=== PATIENT | female | born 1985 | race Caucasian/White ===

== ENCOUNTER 2016-04-22 15:24 | Emergency (ER) | payer OTHER ==
[~2016-04-22] VITALS: Ht 160 cm; Wt 82.0 kg
[~2016-04-22 15:24] MED LIST: FERR27TA; PREN-39; PREN1TAB49 PO
[2016-04-22 16:26] VITALS: Ht 160 cm; Wt 82.0 kg
--- NOTE | 2016-04-22 18:56 | ERD ---
ER Documentation Chief Complaint Date/Time DATE: 04/22/16 TIME: 18:54 Chief Complaint HAS AP IS ABOUT 10 WEEKS JUST FOUND OUT HPI The patient is a 31-year-old female that was sent here by her doctor's office for an ultrasound. She states that she was diagnosed with today and also has an IUD. She reports some 5/10 suprapubic pain which she describes as similar cramping to her menstrual periods, but more intense. She denies dysuria , flank pain, fever, chills, nausea, vomiting, vaginal bleeding, vaginal spotting, or any other symptoms. ROS All systems reviewed and are negative except as per history of present illness. Medications Home Meds Reported Medications Vits W-Ca,Fe,Fa(<1MG) () 1 Tab Tablet, 1 TAB PO DAILY 03/15/12 Ferrous Sulfate (Iron) 1 Tab Tablet 03/15/10 Vits W-Ca,Fe,Fa(<1MG) ( Vitamins) 1 Tab Tablet 03/15/10 Allergies Allergies: Coded Allergies: No Known Allergy (Verified Allergy, Unknown, 10/29/06) PMhx/Soc Medical and Surgical Hx: pt denies Medical Hx, pt denies Surgical Hx Hx Alcohol Use: No Hx Substance Use: No Hx Tobacco Use: No Physical Exam Vitals Vital Signs Date Time Temp Pulse Resp B/P Pulse Ox O2 Delivery O2 Flow Rate FiO2 04/22/16 21:13 98.0 70 18 118/70 100 04/22/16 16:26 99.1 66 18 116/61 100 Physical Exam Const: No acute distress, nontoxic appearing Head: Atraumatic Eyes: Normal Conjunctiva ENT: Normal External Ears, Nose and Mouth. Neck: Full range of motion..~ No meningismus. Resp: Clear to auscultation bilaterally Cardio: Regular rate and rhythm, no murmurs Abd: Soft, non tender, non distended. Normal bowel sounds in all quadrants. No guarding, no rebound. Skin: No petechiae or rashes Back: No midline or flank tenderness. No CVA tenderness. Ext: No cyanosis, or edema Neur: Awake and alert Psych: Normal Mood and Affect Results 24 hrs Laboratory Tests Test 04/22/16 19:06 04/22/16 19:09 Bedside Urine Blood Negative Bedside Urine Glucose (UA) Negative Bedside Urine Ketones (LAB) Negative Bedside Urine Leukocyte Esterase (L Negative Bedside Urine Nitrite (LAB) Negative Bedside Urine Protein (LAB) Negative Bedside Urine pH (LAB) 7.0 Beta HCG, Quantitative 27100.0mIU/ml PROCEDURE: US OB. CLINICAL INDICATION: Pelvic pain and cramping. Last menstrual period on . TECHNIQUE: Transabdominal imaging of the uterus was performed. COMPARISON: None. FINDINGS: A single intrauterine is present with identification of a gestational sac, pole, and yolk sac. [place] rump length measures 2.64 cm, corresponding to a gestational age of 9 weeks 5 days. Real time examination shows cardiac activity. The heart rate is 164 beats per minute. A small subchorionic hemorrhage is visualized measuring about 1.2 cm in diameter. The right ovary was not well visualized. The left ovary measures 3.2 x 2 0. x 1.9 cm and is unremarkable in appearance. No adnexal masses are visualized. There is no significant free fluid in the pelvis. RPTAT: EE IMPRESSION: 1. Single viable intrauterine gestation of approximately 9 weeks 5 days. The estimated date of delivery is 11/20/2016 on the basis of this examination. .Any Bueno MD, MD Date Time Electronically viewed and signed by .Any Bueno MD, MD on 04/22/2016 19:37 Procedures/MDM Nursing Notes Reviewed Previous Medical Records requested via [facility]. EMERGENCY DEPARTMENT COURSE / MEDICAL DECISION MAKING: The patient comes to the ED secondary to new diagnosis of with IUD placement. Differential diagnosis upon initial evaluation includes but is not limited to: Ectopic , normal , and others. Pelvic OB ultrasound per radiology report: IMPRESSION: 1. Single viable intrauterine gestation of approximately 9 weeks 5 days. The estimated date of delivery is 11/20/2016 on the basis of this examination. Beta-hC Urine dip: negative for infection or hematuria Final impression: Intrauterine The case was discussed with supervising physician Dr. Lynch. Called the laborist technology solutions architect, Dr. Colorado, and spoke with him at 1850. Per Dr. Colorado, ordered beta hCG and ultrasound. Per Dr. Colorado, if the beta hCG and ultrasound are within normal limits and do not suggest ectopic or other emergency, the patient can be discharged with outpatient follow-up with her DESIGN VERIFICATION ENGINEER tomorrow. As the ultrasound did not show an IUD, called and spoke with radiology. No IUD was visualized. Discussed this with supervising physician, Dr. Akers. Per Dr. Akers, the patient is an appropriate candidate for outpatient management and follow-up at this time. No further laboratory or imaging studies or interventions indicated at this time. Based on patient's history of present illness and physical examination the decision was made to discharge. There is no evidence of life threatening injuries or illnesses at this time. On re-examination, patient resting in no distress, stable vital signs, reports feeling safe for discharge with outpatient follow up with her DESIGN VERIFICATION ENGINEER tomorrow. She was given a copy of her ultrasound report and her lab results. Patient given return precautions. She verbalized understanding and agreed to return precautions. All of her questions and concerns were addressed prior to discharge. She agrees with the plan of care. KUMAR ORLANDO NP Apr 22, 2016 18:56
[2016-04-22 19:07] LABS: URINE BLOOD (Dip) POC Negative (NEGATIVE)
--- NOTE | 2016-04-22 19:29 | CONS ---
DATE OF ADMISSION: 04/22/2016 DATE OF CONSULTATION: Thank you for consulting with us over the phone. This is a 31-year-old sent from her doctor's offic e for an ultrasound as she was reported to have an IUD. The patient reported some cramps but no vag inal bleeding, no urinary symptoms. As the patient is with IUD, the risk of ectopic pregna ncy increased, so please have a pelvic ultrasound to rule out ectopic and confirm the intr auterine . Second, please do a beta-hCG. If there is any suspicion of ectopic , no IUP, or any new symptoms, please call the laborist ____ [phone] immediately or consult her provider, Dr. Santos, on his cell phone. Thank you very much for consulting with us. Dictated By: BEAU ARECHIGA/SAGRARIO Conf#: [id number] DID#: [id number]
--- NOTE | 2016-04-22 19:33 | RADRPT ---
PROCEDURE: US OB. CLINICAL INDICATION: Pelvic pain and cramping. Last menstrual period on 02/06/2016. TECHNIQUE: Transabdominal imaging of the uterus was performed. COMPARISON: None. FINDINGS: A single intrauterine is present with identification of a gestational sac, pole, and yolk sac. [place] rump length measures 2.64 cm, corresponding to a gestational age of 9 weeks 5 days. Real time examination shows cardiac activity. The heart rate is 164 beats per minute. A small subchorionic hemorrhage is visualized measuring about 1.2 cm in diameter. The right ovary was not well visualized. The left ovary measures 3.2 x 2 0. x 1.9 cm and is unremar kable in appearance. No adnexal masses are visualized. There is no significant free fluid in the p hector. RPTAT: EE IMPRESSION: 1. Single viable intrauterine gestation of approximately 9 weeks 5 days. The estimated date of del rebeca is 11/20/2016 on the basis of this examination. .Any Bueno MD, MD Date Time Electronically viewed and signed by .Any Bueno MD, on 04/22/2016 19:37 .T/
[2016-04-22 21:13] VITALS: BP 118/70; PULSE 70; RESP 18; TEMP 98
== END 2016-04-22 21:13 | disposition home or self-care (01) ==
LOC: FTE 15:24
DX: O26.891 Other specified pregnancy related conditions, first trimester (principal); R10.30 Lower abdominal pain, unspecified; R10.2 Pelvic and perineal pain; Z3A.09 9 weeks gestation of pregnancy
CPT/HCPCS: 36415; 76801; 81003; 84702; Z7502

== ENCOUNTER 2016-11-10 05:00 | Inpatient (IN) | payer BC ==
[~2016-11-10] VITALS: Ht 154.9 cm; Wt 83.4 kg
[2016-11-10 05:08] VITALS: BP 124/81; PULSE 74; RESP 21
[2016-11-10] MEDS ORDERED: MISOPROSTOL 200 MCG TAB PR PRN ×2 (05:30→06:00)
[2016-11-10] MEDS ORDERED: OXYTOCIN 30 UNITS/LR 500 ML IV SCH ×2 (05:30)
[2016-11-10] MEDS ORDERED: LIDOCAINE 1% (MPF) 30 ML INJ INJ PRN (05:30)
[2016-11-10] MEDS ORDERED: IBUPROFEN 600 MG TAB PO PRN (05:30)
[2016-11-10] MEDS ORDERED: LACTATED RINGER'S 1,000 ML IV SCH (05:30)
[2016-11-10] MEDS ORDERED: AMPICILLIN 2 GM/NS (PMX) 100 ML IV ONE (05:30)
[2016-11-10] MEDS ORDERED: CARBOPROST 250 MCG INJ IM PRN ×2 (05:30→06:00)
[2016-11-10] MEDS ORDERED: OXYTOCIN 30 UNITS/LR 500 ML IV PRN ×2 (05:30→06:00)
[2016-11-10] MEDS ORDERED: LACTATED RINGER'S 1,000 ML IV PRN (05:30)
[2016-11-10] MEDS ORDERED: ACETAMINOPHEN/CODEINE #3 TAB PO PRN (05:30)
[2016-11-10] MEDS ORDERED: AMPICILLIN 2 GM/NS (PMX) 100 ML ONE (05:30)
[2016-11-10] MEDS ORDERED: BUTORPHANOL 2 MG INJ IV PRN ×2 (05:30)
[2016-11-10] MEDS ORDERED: METHYLERGONOVINE 0.2 MG INJ IM PRN ×2 (05:30→06:00)
[2016-11-10] MEDS ORDERED: LIDOCAINE 1% (MPF) 30 ML INJ ONE (05:32)
[2016-11-10 05:36] VITALS: Ht 154.9 cm; Wt 83.4 kg
[2016-11-10] MEDS ORDERED: LACTATED RINGER'S 1,000 ML IV* SCH (05:58)
[2016-11-10] MEDS ORDERED: OXYCODONE/ASPIRIN (4.88/325) TAB PO PRN (06:00)
[2016-11-10] MEDS: IBUPROFEN 600 MG TAB PO SCH ×3 (06:00→18:14)
[2016-11-10] MEDS ORDERED: LANOLIN 7 GM TUBE TOP PRN (06:00)
[2016-11-10 06:02] LABS: BASOPHILS % 0.3 % (0.0-2.0); EOSINOPHILS % 0.2 % (0.0-7.0); HEMATOCRIT 40.4 % (37.0-47.0); HEMOGLOBIN 14.1 g/dl (12.0-16.0); LYMPHOCYTES # 1.4 10^3/ul (0.8-2.9); LYMPHOCYTES % 14.1 % (15.0-51.0); MEAN CORPUSCULAR HEMOGLOBIN 32.6 pg (29.0-33.0); MEAN CORPUSCULAR HGB CONC 34.9 g/dl (32.0-37.0); MEAN CORPUSCULAR VOLUME 93.3 fl (82.0-101.0); MEAN PLATELET VOLUME 11.5 fl (7.4-10.4); MONOCYTE # 0.5 10^3/ul (0.3-0.9); MONOCYTES % 5.3 % (0.0-11.0); NEUTROPHIL # 8.1 10^3/ul (1.6-7.5); NEUTROPHILS % 79.7 % (39.0-77.0); PLATELET COUNT 175 10^3/UL (140-415); RED BLOOD COUNT 4.33 10^6/ul (4.20-5.40); RED CELL DISTRIBUTION WIDTH 13.1 % (11.5-14.5); WHITE BLOOD COUNT 10.2 10^3/ul (4.8-10.8)
--- NOTE | 2016-11-10 06:04 | LDN ---
Date/Time of Note Date/Time of Note DATE: 11/10/16 TIME: 06:02 Delivery Summary of a viable baby girl weighing 3130 grams, or 6# 14oz, 19.5" long, and with Apgars of 8/9. Weeks of Gestation 39w 5d Placenta Delivered: Spontaneously Meconium: none Episiotomy: No Perineal laceration: 0 Anesthesia type: None Estimated blood loss: 200 Sponge & Needle done & correct: Yes All needle counts correct: Yes Any foreign bodies felt in the: No (vagina) Problems: Infant Delivery Information Sex Infant Sex: female Apgars 1 Minute: 8 5 Minute: 9 Suctioning Nose & mouth suctioned at mendy: No Delee suction performed: No Umbilical Cord Umbilical cord with: 3 Vessels Cord presentations: no nuchal cord Cord Blood was obtained: Yes Mother & Baby Disposition Disposition Mom & Baby to Maternity; Good: Yes Baby to NICU: No JUAN MANUEL FONTAINE MD Nov 10, 2016 06:04
--- NOTE | 2016-11-10 06:07 | HP ---
Date/Time of Note Date/Time of Note DATE: 11/10/16 TIME: 06:04 OB - History Hx of Present Free Text/Dictation 31 y.o. with an IUP at 39w 5 days came in active labor and delivered in less than a hour. Chief Complaint: Labor Estimated Due Date: Nov 12, 2016 : 5 Para: 4 Care: Good Care Ultrasounds: Normal mid trimester US (paer pt) Obstetrical Complications: None Medical Complications: None Past Family/Social History * Past Medical, Surgical, Family and Obstetric Histories reviewed with pt as prenatals not available. Blood Type: Unknown Rubella: unknown RPR/VDRL: Unknown GBS Status: Unknown HBsAG: Unknown OB Admission Exam Vital Signs Vital Signs Vital Signs Date Time Temp Pulse Resp B/P Pulse Ox O2 Delivery O2 Flow Rate FiO2 11/10/16 05:08 98.3 74 21 124/81 Room Air Physical Exam HEENT: WNL Heart: Rhythm Normal Lungs: Clear Abdomen: WNL Extremities: Normal Reflexes: Normal Cervical Dilatation: 8cm Effacement: 100% Station: -2 Amniotic Fluid: Clear Heart Rate: 140's Accelerations: Accelerations Present Decelerations: No Decelerations Varibility: Moderate Contractions on Admission: < 5 Minutes Apart Last 72 hours Lab Results CBC & BMP 11/10/16 05:35 OB Assessment/Plan Reason for admission: active labor Plan: Expectant Management JUAN MANUEL FONTAINE MD Nov 10, 2016 06:07
[2016-11-10] MEDS: OXYTOCIN 30 UNITS/LR 500 ML IV SCH ×2 (06:13→07:43)
[2016-11-10 06:19] LABS: INR 0.94; PROTIME 12.6 Sec (12.2-14.2)
[2016-11-10 08:30] VITALS: BP 111/58; PULSE 77; RESP 18
[2016-11-10 09:15] VITALS: BP 112/62; PULSE 70; RESP 18
[2016-11-10] MEDS ORDERED: AMPICILLIN 1 GM/NS (PMX) 50 ML IV SCH (09:30)
[2016-11-10 16:25] VITALS: BP 117/68; PULSE 66; RESP 18
[2016-11-10 20:00] VITALS: BP 106/62; PULSE 63; RESP 18
[2016-11-11] VITALS: BP 110/55; RESP 20
[2016-11-11 04:00] VITALS: BP 107/60; PULSE 57; RESP 18
[2016-11-11] MEDS: IBUPROFEN 600 MG TAB PO SCH ×5 (06:30→23:43)
[2016-11-11 08:30] VITALS: BP 104/66; PULSE 64; RESP 16
[2016-11-11 10:34] LABS: BASOPHIL # 0.1 10^3/ul (0.0-0.1); BASOPHILS % 0.8 % (0.0-2.0); EOSINOPHILS # 0.1 10^3/ul (0.0-0.5); EOSINOPHILS % 0.7 % (0.0-7.0); HEMATOCRIT 35.9 % (37.0-47.0); HEMOGLOBIN 12.2 g/dl (12.0-16.0); LYMPHOCYTES # 2.2 10^3/ul (0.8-2.9); LYMPHOCYTES % 25.4 % (15.0-51.0); MEAN CORPUSCULAR HEMOGLOBIN 32.4 pg (29.0-33.0); MEAN CORPUSCULAR VOLUME 95.5 fl (82.0-101.0); MEAN PLATELET VOLUME 11.4 fl (7.4-10.4); MONOCYTE # 0.4 10^3/ul (0.3-0.9); MONOCYTES % 4.9 % (0.0-11.0); NEUTROPHIL # 5.8 10^3/ul (1.6-7.5); NEUTROPHILS % 67.8 % (39.0-77.0); PLATELET COUNT 184 10^3/UL (140-415); RED BLOOD COUNT 3.76 10^6/ul (4.20-5.40); RED CELL DISTRIBUTION WIDTH 13.2 % (11.5-14.5); WHITE BLOOD COUNT 8.6 10^3/ul (4.8-10.8)
--- NOTE | 2016-11-11 12:34 | DS ---
Date/Time of Note Date/Time of Note DATE: 11/11/16 TIME: 12:33 Obstetrical Discharge Record Final Diagnosis Final Diagnosis: Term delivered Vaginal Delivery Obstetrical Delivery: Spontaneous Complications Gestational Diabetes Condition on Discharge Physical Assessment Voiding: Yes Bowel Movement: Yes Breast: Soft, non-tender Fundus: Firm Calf Tenderness: No Patient Condition: Stable JOSH ALBRECHT MD Nov 11, 2016 12:34
[2016-11-11 15:30] VITALS: BP 101/56; PULSE 62; RESP 16
[2016-11-11 19:50] VITALS: BP 119/70; PULSE 75; RESP 19
[2016-11-12 03:30] VITALS: BP 112/75; PULSE 68; RESP 18
[2016-11-12] MEDS: IBUPROFEN 600 MG TAB PO SCH ×2 (05:46→13:52)
[2016-11-12 08:00] VITALS: BP 117/55; RESP 19
[2016-11-12] MEDS ORDERED: DIPHTH/TET/ACEL PERTUSS (ADULT) 0.5 ML VIAL IM* ONE (09:00)
== END 2016-11-12 18:00 | disposition home or self-care (01) | DRG 775 ==
LOC: L-D 05:00 → OBT 05:00 → L-D 05:15 → PP1 08:40
PROVIDERS: ADMIT Obstetrics & Gynecology; ATTEND Obstetrics & Gynecology
PROC: 10E0XZZ Delivery of Products of Conception, External Approach (ICD-10-PCS; principal; 2016-11-10)
PROC: 3E033VJ Introduction of Other Hormone into Peripheral Vein, Percutaneous Approach (ICD-10-PCS; 2016-11-10)
PROC: 3E00X4Z Introduction of Serum, Toxoid and Vaccine into Skin and Mucous Membranes, External Approach (ICD-10-PCS; 2016-11-12)
DX: O80 Encounter for full-term uncomplicated delivery (principal); Z23 Encounter for immunization; Z3A.39 39 weeks gestation of pregnancy; Z37.0 Single live birth
CPT/HCPCS: 85025; 85610; 85730; 86592; 86900; 86901; 87340; 90715; G0463; J0290; J2590; J7120